=== PATIENT | female | born 1940 | race Caucasian/White ===

== ENCOUNTER 2018-10-26 14:06 | Emergency (ER) | payer MEDICARE ==
[~2018-10-26] VITALS: Ht 165.1 cm; Wt 94.3 kg
[~2018-10-26 14:06] MED LIST: ALPR.5 PO; ASPI81EC PO; ATEN25 PO; Cardizem CD 12120 MG PO; Coumadin5 MG PO; HYDACE5 PO; HYDRA25 PO; LOSA50 PO; METO50 PO; ONDA4 PO; OXYACE5T PO; POTA10T PO; SIMV40 PO
[2018-10-26] MEDS ORDERED: CARV6.25 PO ×2 (14:38→14:39)
[2018-10-26] MEDS ORDERED: SIMV40 PO (14:40)
[2018-10-26] MEDS ORDERED: LOSA50 PO (14:40)
[2018-10-26] MEDS ORDERED: METO50ER PO (14:40)
== END 2018-10-26 15:41 | disposition home or self-care (01) ==
LOC: ER 14:06
DX: S00.83XA Contusion of other part of head, initial encounter (principal); S80.01XA Contusion of right knee, initial encounter; I10 Essential (primary) hypertension; I48.91 Unspecified atrial fibrillation; E78.5 Hyperlipidemia, unspecified; F03.90 Unspecified dementia, unspecified severity, without behavioral disturbance, psychotic disturbance, mood disturbance, and anxiety; I25.2 Old myocardial infarction; Z87.891 Personal history of nicotine dependence; W01.0XXA Fall on same level from slipping, tripping and stumbling without subsequent striking against object, initial encounter
CPT/HCPCS: 70450; 73562-RT; 93005; 93010; 99284-25

== ENCOUNTER → 2018-10-31 | Outpatient (CLI) | payer MEDICARE ==
[~2018-10-31] MED LIST changes: +CARV6.25 PO; +METO50ER PO
[2018-10-31 13:49] LABS: BASOPHILS ABSOLUTE AUTO 0.02 K/mm3 (0.00-0.23); BASOPHILS PERCENT AUTO 0 % (0-2); EOSINOPHILS ABSOLUTE AUTO 0.15 K/mm3 (0.00-0.68); EOSINOPHILS PERCENT AUTO 2 % (0-6); Hematocrit 41.4 % (33.0-51.0); Hemoglobin 13.3 g/dL (11.5-16.0); IMMATURE GRAN ABSOLUTE AUTO 0.02 K/mm3 (0.00-0.10); IMMATURE GRAN PERCENT AUTO 0 % (0-1); LYMPHOCYTES ABSOLUTE AUTO 1.41 K/mm3 (0.84-5.20); LYMPHOCYTES PERCENT AUTO 22 % (21-46); MONOCYTES PERCENT AUTO 6 % (4-13); Mean Corpuscular HGB Conc 32.1 g/dL (31.5-36.5); Mean Corpuscular Volume 90 fL (80-100); Mean Platelet Volume 12.8 fL (9.1-12.4); NEUTROPHILS ABSOLUTE AUTO 4.38 K/mm3 (1.96-9.15); NEUTROPHILS PERCENT AUTO 69 % (41-73); Platelet Count 201 K/mm3 (150-400); RDW Coefficient Variation 14.5 % (11.7-14.2); RDW Standard Deviation 47.6 fL (35.1-46.3); Red Blood Cell Count 4.59 M/mm3 (3.80-5.20); White Blood Cell Count 6.38 K/mm3 (4.00-11.30)
[2018-10-31 14:05] LABS: C-REACTIVE PROTEIN, EXT RANGE 0.542 mg/dL (0.000-0.300)
[2018-10-31 14:07] LABS: Alanine Aminotransfer (ALT/SGP 24 U/L (12-78); Albumin, Blood 3.4 g/dL (3.4-5.0); Albumin/Globulin Ratio 1.2 (0.8-1.8); Alk Phos 87 U/L (50-136); Anion Gap 4 mmol/L (6-16); Aspartate Aminotrans (AST/SGOT 22 U/L (12-37); Bilirubin, Total 1.3 mg/dL (0.1-1.0); Blood Urea Nitrogen 18 mg/dL (8-24); Bun/Creatinine Ratio 28.2 (12.0-20.0); CO2, Blood 27 mmol/L (21-32); Calcium, Blood 8.6 mg/dL (8.5-10.1); Chloride, Blood 112 mmol/L (98-108); Creatinine, Blood 0.64 mg/dL (0.40-1.00); Globulin, Blood 2.8 g/dL (2.2-4.0); Glomerular Filtration Rate >60 (60-); Glucose, Blood 96 mg/dL (70-99); Potassium, Blood 4.4 mmol/L (3.5-5.5); Sodium, Blood 143 mmol/L (136-145); Total Protein, Blood 6.2 g/dL (6.4-8.2)
[2018-10-31 14:14] LABS: Lactate Dehydrogenase (Ld),Bld 191 U/L (100-240)
== END | disposition home or self-care (01) ==
LOC: LAB SHORT 13:33 → LAB 13:33
PROVIDERS: Hospitalist
DX: E78.5 Hyperlipidemia, unspecified (principal); E87.6 Hypokalemia; M85.80 Other specified disorders of bone density and structure, unspecified site; M89.9 Disorder of bone, unspecified; I10 Essential (primary) hypertension
CPT/HCPCS: 80053; 83615; 83970; 85025; 85651; 86140

== ENCOUNTER 2019-06-19 15:15 | Inpatient (IN) | payer MEDICARE ==
[~2019-06-19] VITALS: Ht 167.6 cm; Wt 94.2 kg
[~2019-06-19 15:15] MED LIST changes: -ASPI81EC PO; +Aspirin EC81 MG PO
[2019-06-19 15:31] LABS: BASOPHILS ABSOLUTE AUTO 0.02 K/mm3 (0.00-0.23); BASOPHILS PERCENT AUTO 0 % (0-2); EOSINOPHILS ABSOLUTE AUTO 0.15 K/mm3 (0.00-0.68); EOSINOPHILS PERCENT AUTO 2 % (0-6); Hematocrit 50.5 % (33.0-51.0); Hemoglobin 16.4 g/dL (11.5-16.0); IMMATURE GRAN ABSOLUTE AUTO 0.03 K/mm3 (0.00-0.10); IMMATURE GRAN PERCENT AUTO 0 % (0-1); LYMPHOCYTES ABSOLUTE AUTO 2.16 K/mm3 (0.84-5.20); LYMPHOCYTES PERCENT AUTO 29 % (21-46); MONOCYTES ABSOLUTE AUTO 0.41 K/mm3 (0.16-1.47); MONOCYTES PERCENT AUTO 6 % (4-13); Mean Corpuscular HGB 29.5 pg (26.0-34.0); Mean Corpuscular HGB Conc 32.5 g/dL (31.5-36.5); Mean Corpuscular Volume 91 fL (80-100); NEUTROPHILS ABSOLUTE AUTO 4.59 K/mm3 (1.96-9.15); NEUTROPHILS PERCENT AUTO 62 % (41-73); Platelet Count 240 K/mm3 (150-400); RDW Coefficient Variation 13.7 % (11.7-14.2); RDW Standard Deviation 46.5 fL (35.1-46.3); Red Blood Cell Count 5.55 M/mm3 (3.80-5.20); White Blood Cell Count 7.36 K/mm3 (4.00-11.30)
[2019-06-19 15:45] LABS: Calcium, Ionized (POC) 1.05 mmol/L (1.10-1.46); Chloride (POC) 108 mmol/L (98-108); Creatinine (POC) 0.8 mg/dL (0.6-1.0); Glucose (ISTAT POC) 106 mg/dL (70-99); Potassium (POC) 4.1 mmol/L (3.5-5.5); Sodium (POC) 141 mmol/L (135-148); Total CO2 (POC) 24 mmol/L (21-32)
[2019-06-19 15:46] LABS: International Normalized Ratio 0.99; Prothrombin Time Results 10.5 Sec (9.7-11.5)
[2019-06-19 15:49] LABS: Alanine Aminotransfer (ALT/SGP 30 U/L (12-78); Albumin, Blood 3.5 g/dL (3.4-5.0); Alk Phos 91 U/L (50-136); Anion Gap 5 mmol/L (6-16); Aspartate Aminotrans (AST/SGOT 25 U/L (12-37); Bilirubin, Total 0.6 mg/dL (0.1-1.0); Blood Urea Nitrogen 19 mg/dL (8-24); CO2, Blood 26 mmol/L (21-32); Calcium, Blood 8.7 mg/dL (8.5-10.1); Chloride, Blood 110 mmol/L (98-108); Creatinine, Blood 0.73 mg/dL (0.40-1.00); Globulin, Blood 3.5 g/dL (2.2-4.0); Glomerular Filtration Rate >60 (60-); Glucose, Blood 108 mg/dL (70-99); Potassium, Blood 4.1 mmol/L (3.5-5.5); Sodium, Blood 141 mmol/L (136-145)
[2019-06-19] MEDS ORDERED: WARF5 PO (15:49)
[2019-06-19] MEDS ORDERED: METO50 PO (15:49)
[2019-06-19] MEDS ORDERED: LOSARTAN POTASS50 MG PO (17:46)
--- NOTE | 2019-06-19 20:46 | NUR ---
transfer report from [facility] on PT with hx of afib Remote AMI and stroke like s/sx which resolved in ER. Head CT neg for CVA showed volume loss and some microvascular changes. Family involved. Will be observation status on Tele monitor Fall precautions , recent fall last week. Recent decline in memory. Await admission
[2019-06-20 01:20] LABS: Source, Urine Clean Catch
[2019-06-20 01:23] LABS: Bilirubin, Urine Neg (Neg); Blood, Urine Neg (Neg); Glucose Qualitative, Urine Neg (Neg); Ketones, Urine Neg (Neg); Leukocyte Esterase, Urine 1+ (Neg); Nitrite, Urine Neg (Neg); Protein, Urine Neg (Neg); Urobilinogen, Urine NORM (Normal)
[2019-06-20 01:30] LABS: Appearance, Urine Hazy (Clear); Color, Urine Yellow (P-Yellow)
[2019-06-20 01:31] LABS: Red Blood Cells, Urine 0-2 /hpf (0-2)
[2019-06-20 01:32] LABS: Bacteria Many /hpf; Squamous Epithelial Cells Not Seen /hpf (Few)
[2019-06-20 04:55] LABS: International Normalized Ratio 1.03; Prothrombin Time Results 10.9 Sec (9.7-11.5)
[2019-06-20 04:56] LABS: Anion Gap 8 mmol/L (6-16); Blood Urea Nitrogen 9 mg/dL (8-24); Bun/Creatinine Ratio 19.7 (12.0-20.0); CO2, Blood 25 mmol/L (21-32); Calcium, Blood 8.5 mg/dL (8.5-10.1); Chloride, Blood 110 mmol/L (98-108); Creatinine, Blood 0.46 mg/dL (0.40-1.00); Glomerular Filtration Rate >60 (60-); Glucose, Blood 105 mg/dL (70-99); Potassium, Blood 3.3 mmol/L (3.5-5.5); Sodium, Blood 143 mmol/L (136-145)
--- NOTE | 2019-06-20 07:29 | NUR ---
PT with hx of afib with rvr not on anticoagulant has hx of acute TX. PT has had hacking cough for at least a month room air sats are greater than 90%. HOBup and PT has ST eval ordered. PT alert and has some memory deficits with head ct showing no acute abnormality but ischemic small vessel disease and volume loss. PT has vertigo and very unsteady gait, fell within last week and hit head. Impulsive and poor safety awareness. Attempted to get out of bed multiple times, setting off bed alarm. Unable to state year of current month or year or current president. Medicated x 2 for co headache and scapula pain after fall. PT is very poor historian but MRI screening form completed. medicated for elevated bp x 2 with apresoline 10 mg iv with helpful effect. PT has ua positive , c & s pending.
[2019-06-20] MEDS ORDERED: POTA10T PO (08:38)
[2019-06-20] MEDS ORDERED: ACET325 PO (13:26)
[2019-06-20] MEDS ORDERED: AMLO5 PO (13:26)
[2019-06-20] MEDS ORDERED: WARF5 PO (13:27)
[2019-06-20] MEDS ORDERED: ATOR40TA PO (13:27)
--- NOTE | 2019-06-20 14:28 | NUR ---
SUMMARY PT DISCHARGING TO HOME WITH HOME HEALTH, SPEECH AND PHYSICAL THERAPY HAVE WORKED WITH THE PT, DAUGHTER IS IN THE ROOM AND IS IN AGREEMENT TO DISCHARGE, DISCHARGE PLANNING CAME TO SPEAK WITH THE PT AND THE DAUGHTER, PLAN WILL BE TO GO TO OUTPATIENT THERAPY STARTING TUESDAY, PT CONT WITH SOME APHASIA FOR MOST OF THE DAY, DAUGHTER VERBALIZES UNDERSTANDING OF DISCHARGE INSTRUCTIONS REGARDING MEDS, FOLLOW UP, AND THERAPY, CURRENTLY WAITING FOR THE SPOUSE TO BE DONE WITH DIALYSIS FOR THE PT TO GO HOME
--- NOTE | 2019-06-20 15:12 | NUR ---
PT DISCHARGED TO HOME WITH THE DAUGTER, TAKEN OUT SAFELY VIA WHEELCHAIR
== END 2019-06-20 15:05 | disposition home health service (06) | DRG 66 ==
LOC: ER 15:15 → MEDS 15:16 → ENPENDDIS 06-20 12:55 → MEDS 06-20 15:05
PROVIDERS: Emergency Medicine; ADMIT Hospitalist
DX: I63.9 Cerebral infarction, unspecified (principal); R47.01 Aphasia; R29.810 Facial weakness; I10 Essential (primary) hypertension; I48.91 Unspecified atrial fibrillation; F41.9 Anxiety disorder, unspecified; E87.6 Hypokalemia; E78.5 Hyperlipidemia, unspecified; E03.9 Hypothyroidism, unspecified; Z79.82 Long term (current) use of aspirin; Z79.899 Other long term (current) drug therapy; I25.2 Old myocardial infarction
CPT/HCPCS: 36415; 70450; 70496; 70498; 70551; 80047; 80048; 80053; 81001; 85014; 85025; 85610; 87086; 92523; 93005; 93010; 96374; 96376; 97116; 97162; 97530; 99285-25; A9270; A9270-GY; G0378; J0360; J7030; Q9967

== ENCOUNTER → 2021-12-16 | Outpatient (CLI) | payer MEDICARE ==
[~2021-12-16] MED LIST changes: +ACET325 PO; +AMLO5 PO; +ATOR40TA PO; +LOSARTAN POTASS50 MG PO; +WARF5 PO
[2021-12-16 15:06] LABS: Anion Gap 7 mmol/L (6-16); Blood Urea Nitrogen 14 mg/dL (8-24); Bun/Creatinine Ratio 19.3 (12.0-20.0); CHOL/HDL RATIO 7.3; CO2, Blood 28 mmol/L (21-32); Calcium, Blood 8.8 mg/dL (8.5-10.1); Chloride, Blood 111 mmol/L (98-108); Cholesterol 314 mg/dL (50-200); Creatinine, Blood 0.73 mg/dL (0.40-1.00); Glomerular Filtration Rate 82 (60-); Glucose, Blood 107 mg/dL (70-99); HDL Cholesterol 43 mg/dL (>39); LDL/HDL RATIO 5.6; Low Density Lipoprotein Chol 240 mg/dL (0-110); Sodium, Blood 146 mmol/L (136-145); Triglycerides 154 mg/dL (30-160); Very Low Density Lipoprot Chol 30 mg/dL (6-32)
[2021-12-16 16:25] LABS: International Normalized Ratio 1.97; Prothrombin Time Results 19.8 Sec (9.7-11.5)
== END | disposition home or self-care (01) ==
LOC: LAB 11:00 → LAB SHORT 11:00
PROVIDERS: Hospitalist
DX: E78.5 Hyperlipidemia, unspecified (principal); I10 Essential (primary) hypertension; I48.21 Permanent atrial fibrillation
CPT/HCPCS: 80048; 80061; 84443; 85610

== ENCOUNTER → 2022-02-08 | Outpatient (CLI) | payer MEDICARE | END | disposition home or self-care (01) | LOC: LAB 13:40 → LAB SHORT 13:40 | DX: R31.9 Hematuria, unspecified (principal) | CPT/HCPCS: 87086 ==